=== PATIENT | male | born 1960 | race Caucasian/White ===

== ENCOUNTER 2017-10-10 10:17 | Emergency (ER) | payer OTHER ==
[2017-10-10 10:37] VITALS: BMI 26.7
[2017-10-10 10:39] VITALS: BP 137/89; PULSE 85; RESP 18; TEMP 98.5; O2SAT 98
--- NOTE | 2017-10-10 10:58 | C.PDOC ---
History Of Present Illness 57 y/o male presents to ED with c/o right hip pain radiating down right leg for 3 days after "overworking leg at his job". Patient states he put too much weight on right lef while working and currently denies numbness, swelling or any other complaints at this time. Time Seen by Provider: 10/10/17 10:47 Chief Complaint (Nursing): Back Pain History Per: Patient History/Exam Limitations: no limitations Onset/Duration Of Symptoms: Days Current Symptoms Are (Timing): Still Present Quality Of Discomfort: "Pain" Past Medical History Reviewed: Historical Data, Nursing Documentation, Vital Signs Vital Signs: Last Vital Signs Temp 98.5 F 10/10/17 10:37 Pulse 85 10/10/17 10:37 Resp 18 10/10/17 10:37 BP 137/89 10/10/17 10:37 Pulse Ox 98 10/10/17 11:02 - Medical History PMH: HTN Surgical History: No Surg Hx Family History: States: No Known Family Hx - Social History Hx Alcohol Use: No Hx Substance Use: No - Immunization History Hx Tetanus Toxoid Vaccination: No Hx Influenza Vaccination: No Hx Pneumococcal Vaccination: No Review Of Systems Except As Marked, All Systems Reviewed And Found Negative. Musculoskeletal: Positive for: Leg Pain, Other (hip pain ) Neurological: Negative for: Numbness Physical Exam - Physical Exam Appears: Non-toxic, No Acute Distress Skin: Warm, Dry, No Rash Head: Atraumatic, Normacephalic Oral Mucosa: Moist Extremity: Tenderness (right hip ), Capillary Refill (<2 seconds), No Deformity Pulses: Right Dorsalis Pedis: Normal Neurological/Psych: Oriented x3, Normal Motor, Normal Sensation ED Course And Treatment O2 Sat by Pulse Oximetry: 98 (RA) Medical Decision Making Medical Decision Making: suspect bursitis, vs itb pain vs les likley fracture. normal rom, joint not warm /hot. pain meds, xr neg, outpt fu. pt offered crutches, declines. Disposition - Disposition Referrals: [facility] [Outside] [facility] [Outside] [facility] [place] [Outside] Disposition: HOME/ ROUTINE Disposition Time: 11:00 Condition: STABLE Additional Instructions: please see specialist. return to er with worsening symptoms or concerns. Prescriptions: Naproxen [Naprosyn] 500 mg PO BID PRN #14 tablet PRN Reason: Pain, Mild (1-3) Instructions: Bursitis (DC), Hip Pain Forms: [facility] (Maltese), Work Excuse - Clinical Impression Clinical Impression: Hip pain - Scribe Statement The provider has reviewed the documentation as recorded by the Clarenceibfelix Pierson All medical record entries made by the Clarenceibfelix were at my direction and personally dictated by me. I have reviewed the chart and agree that the record accurately reflects my personal performance of the history, physical exam, medical decision making, and the department course for this patient. I have also personally directed, reviewed, and agree with the discharge instructions and disposition.
--- NOTE | 2017-10-10 11:28 | RAD ---
PROCEDURE: Right Hip Radiographs. HISTORY: pain COMPARISON: Correlations made to CT scan of the abdomen and pelvis dated 11/24/2014. FINDINGS: BONES: No acute fracture. Subchondral cyst in the right femoral neck. JOINTS: Normal. SOFT TISSUES: Normal. OTHER FINDINGS: Calcifications in the region of the right greater trochanter consistent with calcific tendinitis. IMPRESSION: No demonstrated fracture or dislocation. Calcifications in the region of the right greater trochanter consistent with calcific tendinitis.
== END 2017-10-10 11:58 | disposition home or self-care (01) ==
LOC: C.ER 10:17
DX: M25.551 Pain in right hip (principal)
CPT/HCPCS: 73502; 96372; 99283; J1885